=== PATIENT | female | born 2005 | race Caucasian/White ===

== ENCOUNTER 2024-04-27 21:55 | Emergency (ER) | payer OTHER ==
[~2024-04-27] VITALS: Ht 160 cm; Wt 55.0 kg
[2024-04-27 22:00] VITALS: BP 95/53; PULSE 117; RESP 20; TEMP 36.8; O2SAT 100
[2024-04-27] MEDS: ACETAMINOPHEN 325MG TABLET PO ONE (22:42)
[2024-04-27 22:56] LABS: BASOPHILS % 0.3 % (0.0-2.0); EOSINOPHILS % 0.3 % (0.0-5.0); HEMATOCRIT. 38.6 % (36.0-48.0); HEMOGLOBIN. 12.9 g/dL (12.0-16.0); LYMPHOCYTES % 17.2 % (20.0-50.0); MEAN CORPUSCULAR HGB CONC 33.4 g/dL (31.0-37.0); MEAN CORPUSCULAR VOLUME 89.8 fL (81.0-99.0); MEAN PLATELET VOLUME 8.1 fl (7.4-10.4); MONOCYTES % 8.2 % (2.0-8.0); PLATELET 177 x1000/uL (130-400); RED BLOOD CELL COUNT 4.31 mill/uL (4.2-5.4); RED CELL DISTRIBUTION WIDTH 13.2 % (11.6-14.6); WHITE BLOOD COUNT 6.1 x1000/uL (4.5-11.0)
[2024-04-27 23:01] LABS: CHLORIDE 102 mEq/L (98-107); POTASSIUM 4.5 mEq/L (3.5-5.1); SODIUM 140 mEq/L (136-145)
[2024-04-27 23:02] LABS: CARBON DIOXIDE 26 mEq/L (21-32)
[2024-04-27 23:03] LABS: CALCIUM 9.6 mg/dL (8.7-10.4)
[2024-04-27 23:07] LABS: CREATININE 0.9 mg/dL (0.6-1.0); GLUCOSE 106 mg/dL (70-105)
[2024-04-27 23:08] LABS: UREA NITROGEN BLOOD 12 mg/dL (9-23)
[2024-04-27 23:24] LABS: HCG SCREEN NEGATIVE
[2024-04-28] MEDS ORDERED: ACET-2708 MT (01:15)
== END 2024-04-28 01:53 | disposition home or self-care (01) ==
LOC: ER 21:55 → EDBD 21:55 → ER 04-28 01:53
DX: S09.8XXA Other specified injuries of head, initial encounter (principal); X58.XXXA Exposure to other specified factors, initial encounter; Y93.89 Activity, other specified; Y92.89 Other specified places as the place of occurrence of the external cause; Y99.8 Other external cause status
CPT/HCPCS: 36415; 80048; 84703; 85025; 99284